=== PATIENT | female | born 1930 ===

== ENCOUNTER 2020-05-19 07:47 | Inpatient (IN) | payer MEDICARE ==
[~2020-05-19] VITALS: Ht 162.6 cm; Wt 64.1 kg
[2020-05-19] VITALS (16 sets, daily range): BP systolic 72–158; BP diastolic 41–99; BMI 19.6
--- NOTE | 2020-05-19 07:00 | NUR ---
PT RECEIVED FROM MED FLIGHT, FAMILY CALLED UNABLE TO GIVE UPDATE R/T AT BEDSIDE. VSS UPON ARRIVAL.
[2020-05-19] MEDS ORDERED: ACETAMINOPHEN325 MG PO (08:31)
[2020-05-19] MEDS ORDERED: ZOFRAN4 MG PO (08:31)
--- NOTE | 2020-05-19 09:20 | NUR ---
DR THAO AT BEDSIDE. GIVEN UDPATE. GIVEN UPDATE TO GIVE FAMILY UPDATE REGAURDING PT STATUS.
--- NOTE | 2020-05-19 10:10 | NUR ---
DR FRASER ACADEMIC COACH AT BEDSIDE GIVEN UPDATE. ALSO GIVEN UDPATE PT FAMILY REQUESTING UPDATE FROM THEIR GROUP, STATED WOULD TELL DR FRASER.
[2020-05-19 10:40] LABS: BASOPHILS 0.1 % (0-2); EOSINOPHILS 0.1 % (0-7); HEMATOCRIT 33.9 % (36.0-48.0); IMMATURE GRANULOCYTES 0.2 % (0-5); LYMPHOCYTES 7.3 % (15-50); MCH 30.8 pg (26.0-34.0); MCHC 32.4 g/dL (31.0-37.0); MEAN PLATELET VOLUME 9.2 fL (7.4-10.4); MONOCYTES 4.4 % (2-11); NEUTROPHILS 87.9 % (40-80); PLATELET COUNT 281 10x3/uL (130-400); RBC 3.57 10x6/uL (4.00-5.40); RDW 13.3 % (11.5-14.5); WBC 8.2 10x3/uL (4.8-10.8)
[2020-05-19 10:54] LABS: ALBUMIN 2.8 g/dL (3.4-5.0); ANION GAP 17.7 mmol/L (8-16); BILIRUBIN - TOTAL 0.44 mg/dL (0.2-1.3); CALCIUM 9.5 mg/dL (8.5-10.1); CARBON DIOXIDE 18.9 mmol/L (21.0-32.0); CREATININE - SERUM 1.9 mg/dL (0.6-1.3); POTASSIUM - SERUM 4.6 mmol/L (3.5-5.1); PROTEIN - SERUM 7.9 g/dL (6.4-8.2)
--- NOTE | 2020-05-19 11:07 | NUR ---
PS TRIAL 09/25
--- NOTE | 2020-05-19 11:10 | NUR ---
REASSESSMENT COMPLETE PER FLOW SHEET. VSS. PT RESTING COMFOTGABLY WILL CONTINUE TO MONITOR
--- NOTE | 2020-05-19 12:11 | NUR ---
I/T HERE, ATTEMPT TO CALL GILBERTO Guevara, WENT STRAIGHT TO VOICE MAIL. WILL TRY AGAIN IN 10 MINUTES REGAURDING ZOOM MEETING.
--- NOTE | 2020-05-19 13:26 | NUR ---
ATTEMPT TO CALL GILBERTO WITH NO ANSWER.
--- NOTE | 2020-05-19 15:00 | NUR ---
REASSESSMENT COMPLETE PER FLOW SHEET. VSS. PT RESTING COMOFRTBLY WILL CONTINUE TO MONITOR
[2020-05-19 17:12] LABS: CKMB 88.5 U/L (0.0-3.6); CREATINE KINASE 658 UL (21-215)
[2020-05-19 17:14] LABS: TROPONIN-I 43.169 ng/mL (0.000-0.060)
--- NOTE | 2020-05-19 17:27 | NUR ---
CARDIOLOGY PAGED. LAURA FONSECA APN CALLED BACK GIVEN UPDATE REGAURDING ELEVATED TROPONIN, STATED PT UNABLE TO GO TO MEDICAL PATHOLOGIST AT THIS TIME WITH ELEVATED CREATININE. EKG OBTAINED GIVEN UPDATE NSR WITH NO ST ELEVATION. ECHO READ BACK STATED PT HAD LIKELY CARDIOMYOPATHY. NEW ORDERS RECEIVED FOR DOBUTREX AND COREG. WILL CONTINUE TO MONITOR
[2020-05-19 21:46] LABS: CKMB 66.7 U/L (0.0-3.6)
[2020-05-19 21:47] LABS: CREATINE KINASE 493 UL (21-215); TROPONIN-I 32.444 ng/mL (0.000-0.060)
[2020-05-20] VITALS (20 sets, daily range): BP systolic 88–134; BP diastolic 41–65; Ht 162.6 cm; Wt 64.1 kg
[2020-05-20 03:37] LABS: BASOPHILS 0 % (0-2); EOSINOPHILS 0.1 % (0-7); HEMOGLOBIN 8.9 g/dL (12-16); IMMATURE GRANULOCYTES 0.3 % (0-5); LYMPHOCYTES 4.9 % (15-50); MCH 30.2 pg (26.0-34.0); MCHC 32.8 g/dL (31.0-37.0); MEAN PLATELET VOLUME 8.4 fL (7.4-10.4); MONOCYTES 4.7 % (2-11); RBC 2.95 10x6/uL (4.00-5.40); RDW 13.5 % (11.5-14.5); WBC 7.5 10x3/uL (4.8-10.8)
[2020-05-20 03:50] LABS: HEMATOCRIT 27.1 % (36.0-48.0); MCV 91.9 fL (80.0-100.0); PLATELET COUNT 217 10x3/uL (130-400)
[2020-05-20 04:09] LABS: CALC OSMOLALITY 281 mosm/kg (275-300); CARBON DIOXIDE 16.5 mmol/L (21.0-32.0); CHLORIDE - SERUM 106 mmol/L (98-107); CREATININE - SERUM 1.9 mg/dL (0.6-1.3); GLUCOSE 141 mg/dL (74-106); MAGNESIUM - SERUM 1.7 mg/dL (1.8-2.4); PHOSPHOROUS 4.3 mg/dL (2.5-4.9); POTASSIUM - SERUM 4.3 mmol/L (3.5-5.1); SODIUM 135 mmol/L (136-145); UREA NITROGEN 40 mg/dL (7-18); eGFR NON AFRICAN AMERICAN 26 mL/min (90-120)
[2020-05-20 04:18] LABS: CREATINE KINASE 347 UL (21-215)
--- NOTE | 2020-05-20 07:00 | NUR ---
REPORT RECEIVED ASSESSMENT COMPLETE PER FLOW SHEET. REFER FOR FINDINGS. VSS. ORAL CARE GIVEN. REPOSITION FOR COMFORT. WILL CONTINUE TO MONITOR
--- NOTE | 2020-05-20 09:00 | NUR ---
DR THAO AT BEDSIDE. GIVEN UPDATE. NEW ORDERS RECEIVED.
[2020-05-20 10:53] LABS: CHOL - HDL RATIO 2.2 ratio (2.3-4.1); LDL-HDL RATIO 0.8 ratio (1.5-3.5)
--- NOTE | 2020-05-20 11:00 | NUR ---
REASSESSMENT COMPLETE PER FLOW SHEET. CPAP TRIAL ADM PT TOLERATED FOR 30MINS. RESTING COMFORTABLY. VSS.
--- NOTE | 2020-05-20 18:00 | NUR ---
PT IS RESTING COMFORTABLY IN BED. VSS. DR THAO VISIT WITH PATIENT NO NEW ORDERS AT THIS TIME. FAMILY MEMBER CALLED AND MADE AWARE OF THE CLIENT WELLFARE AND OF THE SCHEDULED ANGIOGRAM SET UP FOR TOMORROW NO OTHER CONCERNS AT THIS TIME. BED IN LOWEST POSITION.
[2020-05-21] VITALS (24 sets, daily range): BP systolic 110–146; BP diastolic 54–71
[2020-05-21 04:54] LABS: BASOPHILS 0.2 % (0-2); EOSINOPHILS 0.5 % (0-7); HEMATOCRIT 26.4 % (36.0-48.0); HEMOGLOBIN 8.7 g/dL (12-16); IMMATURE GRANULOCYTES 0.3 % (0-5); LYMPHOCYTES 11.6 % (15-50); MCH 30.3 pg (26.0-34.0); MEAN PLATELET VOLUME 9.2 fL (7.4-10.4); MONOCYTES 4.5 % (2-11); NEUTROPHILS 82.9 % (40-80); RBC 2.87 10x6/uL (4.00-5.40); RDW 13.7 % (11.5-14.5); WBC 6.4 10x3/uL (4.8-10.8)
[2020-05-21 05:00] LABS: PLATELET COUNT 267 10x3/uL (130-400)
[2020-05-21 05:10] LABS: ANION GAP 19.9 mmol/L (8-16); CALCIUM 8.5 mg/dL (8.5-10.1); CARBON DIOXIDE 14.8 mmol/L (21.0-32.0); CREATININE - SERUM 1.9 mg/dL (0.6-1.3); MAGNESIUM - SERUM 1.7 mg/dL (1.8-2.4); PHOSPHOROUS 3.6 mg/dL (2.5-4.9); POTASSIUM - SERUM 3.7 mmol/L (3.5-5.1)
--- NOTE | 2020-05-21 07:00 | NUR ---
REASSESSMENT COMPLETE PER FLOW SHEET. VSS. PT RESTING COMFORTABLY WILL CONTINUE TO MONITOR
--- NOTE | 2020-05-21 09:00 | NUR ---
DR THAO AT BEDSIDE GIVNE UPDATE
--- NOTE | 2020-05-21 10:18 | NUR ---
Nutrition follow-up: Pt remains intubated; weaning trials today Propofol @ 10.5 ml/hr NPO Labs reviewed Wt: 113# If pt unable to extubate will need nutrition support started. RDN recommends Pulmocare @ 25 ml/hr with goal rate of 40 ml/hr RDN following.
--- NOTE | 2020-05-21 11:00 | NUR ---
REASSESSMENT COMPLETE PER FLOW SHEET. VSS. WILL CONTINUE TO MONITOR
--- NOTE | 2020-05-21 12:45 | NUR ---
PHYSICAN CONSULT CALLED INTO DR MAHONEY OFFICE
--- NOTE | 2020-05-21 13:00 | NUR ---
ORAL ENDOTRACH CARE ADM. NO NEW CHANGES
[2020-05-21 14:05] LABS: BILIRUBIN NEGATIVE (NEGATIVE); GLUCOSE NEGATIVE (NEGATIVE); KETONE NEGATIVE (NEGATIVE); NITRITE NEGATIVE (NEGATIVE); UROBILINOGEN NORMAL (NORMAL)
--- NOTE | 2020-05-21 15:00 | NUR ---
REASSESSMENT COMPLETE PER FLOW SHEET. VSS. PT RESTING COMFORTABLY WILL CONTINUE TO MONITOR
--- NOTE | 2020-05-21 22:05 | NUR ---
SPOKE WITH DR THAO VIA PHONE. GIVEN UPDATES ON PT CONDITION.
[2020-05-22] VITALS (22 sets, daily range): BP systolic 101–135; BP diastolic 41–90
[2020-05-22 04:50] LABS: BASOPHILS 0.2 % (0-2); EOSINOPHILS 0.6 % (0-7); HEMATOCRIT 25.7 % (36.0-48.0); HEMOGLOBIN 8.4 g/dL (12-16); IMMATURE GRANULOCYTES 0.3 % (0-5); LYMPHOCYTES 9.2 % (15-50); MCH 30.5 pg (26.0-34.0); MCHC 32.7 g/dL (31.0-37.0); MCV 93.5 fL (80.0-100.0); MONOCYTES 5.7 % (2-11); PLATELET COUNT 252 10x3/uL (130-400); RBC 2.75 10x6/uL (4.00-5.40); RDW 13.8 % (11.5-14.5); WBC 6.5 10x3/uL (4.8-10.8)
[2020-05-22 05:07] LABS: ANION GAP 17.5 mmol/L (8-16); CALCIUM 8.5 mg/dL (8.5-10.1); CARBON DIOXIDE 16.8 mmol/L (21.0-32.0); CREATININE - SERUM 1.6 mg/dL (0.6-1.3); MAGNESIUM - SERUM 1.6 mg/dL (1.8-2.4); PHOSPHOROUS 3.1 mg/dL (2.5-4.9); POTASSIUM - SERUM 3.3 mmol/L (3.5-5.1)
--- NOTE | 2020-05-22 08:59 | NUR ---
SPOKE WITH DAUGHTER ON TELEPHONE-REVIEWED LAB WORK AND ANSWERED QUESTIONS-CXR NOT AVAILABLE-MADE AWARE PLACED ON SLEEPING MEDICINE-PROPOFOL
--- NOTE | 2020-05-22 11:00 | NUR ---
REASSESSMENT COMPLETED PER FLOWSHEET, SEE FLOWSHEET FOR INFORMATION. NO ACUTE NEEDS OR DISTRESS NOTED AT THIS TIME. VSS. WILL CONT TO MONITOR.
--- NOTE | 2020-05-22 13:00 | NUR ---
PT RESTING IN BED WITH EYS CLOSED. NO ACUTE NEEDS OR DISTRESS NOTED AT THIS TIME. VSS. WILL CONT TO MONITOR.
--- NOTE | 2020-05-22 15:08 | NUR ---
4062-RECIEVED PER FLOW YWCLE-OUBQMXJORDHF-B JUGULAR SINGLE IV 20 G -SUCTIONED FOR LARGE AMOUNT OF THICK YELLOW MUCUS-RENAL SERVICES AT BEDSIDE 0930-DR THAO AT BEDSIDE-STATUS REPORT GIVEN-DR MAHONEY AT BEDSIDE 1130-DR FRASER AT BEDSIDE-STATUS REPORT GIVEN-DR THAO RETURNED -DIRECTED TO DECREASE SEDATION FOR NUERO CHECK AND ATTEMPT FOR CPAP TRIAL-DIPRIVAN DECREASED TO 3MCG-RT AT BEDSIDE-VENT CHANGES DONE-NOTED FACIAL AWAKE
--- NOTE | 2020-05-22 17:00 | NUR ---
CHG BEDBATH GIVEN/ WILL CONT TO MONITOR.
--- NOTE | 2020-05-22 19:00 | NUR ---
REPORT RECEIVED INITIAL ASSESSMENT COMPLETE SEE ASSESSMENT FLOWSHEET. CM READING SR WITHOUT ECTOPY ALARMS ON AND AUDIBLE. ORALLY INTUBATED SEE RESP NOTES FOR VENT SETTINGS AND CHANGES. LIGHT SEDATION PER KATHY. CPOC
--- NOTE | 2020-05-22 23:00 | NUR ---
REASSESSMENT COMPLETE NO CHANGES ORAL CARE PROVIDED REPOSITIONED
[2020-05-23] VITALS (24 sets, daily range): BP systolic 109–136; BP diastolic 35–75
--- NOTE | 2020-05-23 03:00 | NUR ---
REASSESSMENT COMPLETE NO CHANGES CPOC
--- NOTE | 2020-05-23 06:40 | NUR ---
PT HAD MODERATE SIZE BROWN SEMI FORMED STOOL PARTIAL BED BATH LINEN CHANGE
--- NOTE | 2020-05-23 07:00 | NUR ---
BEDSIDE REPORT RECEIVED. SHIFT ASSESSMENT COMPLETED PER FLOWSHEET, SEE FLOWSHEET FOR INFORMATION. IN LEFT ARM VERY THREADY RADIAL PULSE. PT IS COOL TO TOUCH, BLANKETS PLACED ON PT. RIGHT RADIAL PULSE AUDILE WITH DOPPLER. WILL CONT TO MONITOR.
[2020-05-23 08:15] LABS: BASOPHILS 0.2 % (0-2); EOSINOPHILS 2.5 % (0-7); HEMATOCRIT 26.8 % (36.0-48.0); HEMOGLOBIN 8.5 g/dL (12-16); IMMATURE GRANULOCYTES 0.4 % (0-5); LYMPHOCYTES 12.2 % (15-50); MCHC 31.7 g/dL (31.0-37.0); MCV 94.7 fL (80.0-100.0); MONOCYTES 6.5 % (2-11); NEUTROPHILS 78.2 % (40-80); PLATELET COUNT 248 10x3/uL (130-400); RBC 2.83 10x6/uL (4.00-5.40); RDW 13.8 % (11.5-14.5)
[2020-05-23 08:16] LABS: WBC 4.8 10x3/uL (4.8-10.8)
[2020-05-23 08:25] LABS: ANION GAP 17.9 mmol/L (8-16); CALCIUM 8.5 mg/dL (8.5-10.1); CREATININE - SERUM 1.3 mg/dL (0.6-1.3); PHOSPHOROUS 2.9 mg/dL (2.5-4.9); POTASSIUM - SERUM 3.9 mmol/L (3.5-5.1)
[2020-05-23 08:31] LABS: MAGNESIUM - SERUM 2.5 mg/dL (1.8-2.4)
--- NOTE | 2020-05-23 09:00 | NUR ---
ORAL AND INLINE SUCTIONED. DR.ST SIERRA AT BEDSIDE, STATED HE MAY TAKE HER FOR CATH ON Sunday BUT NOT SURE. KAROL MARIE APPLIED. WILL CONT TO MONITOR.
--- NOTE | 2020-05-23 10:00 | NUR ---
PT PLACED ON PRESSURE SUPPORT TRIALS. WILL CONT TO MONITOR.
--- NOTE | 2020-05-23 10:01 | NUR ---
ON THE PHONE WITH FAMILY, UPDATE GIVEN. WILL CONT TO MONITOR.
--- NOTE | 2020-05-23 10:40 | NUR ---
SPOKE WITH NESTOR (DAUGHTER) AND GOT CONSENT FOR A CENTRAL LINE PLACEMENT BY WITNESSED BY SOLANGE ALTMAN. WILL CONT TO MONITOR.
--- NOTE | 2020-05-23 11:00 | NUR ---
REASSESSMENT COMPLETED PER FLOWSHEET, SEE FLOWSHEET FOR INFORMATION. PT STILL ON PRESSURE SUPPORT TRIALS. NO ACUTE NEEDS OR DISTRESS NOTED AT THIS TIME. VSS. WILL CONT TO MONITOR.
--- NOTE | 2020-05-23 13:00 | NUR ---
RIGHT SUBCLAVIAN CVL IN PLACE. WILL CONT TO MONITOR.
--- NOTE | 2020-05-23 15:00 | NUR ---
REASSESSMENT COMPLETED PER FLOWSHEET, SEE FLOWSHEET FOR INFORMATION. WILL CONT TO MONITOR.
--- NOTE | 2020-05-23 16:10 | NUR ---
PER DR THAO, SET UP CVP.
--- NOTE | 2020-05-23 17:00 | NUR ---
PT RESTING IN BED WITH BIPAP IN PLACE. FAMILY UPDATED. WILL CONT TO MONITOR.
--- NOTE | 2020-05-23 19:00 | NUR ---
REPORT RECEIVED INITIAL ASSESSMENT COMPLETE. PT WAS EXTUBATED TODAY NOW ON BIPAP. CM READING SR WITHOUT ECTOPY ALARMS ON AND AUDIBLE. SEE ASSESSMENT FLOWSHEET. CPOC
--- NOTE | 2020-05-23 23:05 | NUR ---
RECEIVED PT TO ICU ROOM 2309 PLACED ON LUMBER CUTTER READING SB WITHOUT ECTOPY ALARMS ON AND AUDIBLE. PT UNRESPONSIVE ON BIPAP RESP AT BEDSIDE TO GET ABG. WILL CONTINUE TO MONITOR
[2020-05-24] VITALS (24 sets, daily range): BP systolic 107–153; BP diastolic 52–86
--- NOTE | 2020-05-24 03:40 | NUR ---
AM LAB HERE FOR AM LABS
[2020-05-24 04:35] LABS: BASOPHILS 0.2 % (0-2); EOSINOPHILS 1.8 % (0-7); HEMOGLOBIN 7.8 g/dL (12-16); IMMATURE GRANULOCYTES 0.8 % (0-5); MCH 29.8 pg (26.0-34.0); MCHC 31.2 g/dL (31.0-37.0); MCV 95.4 fL (80.0-100.0); MEAN PLATELET VOLUME 9.1 fL (7.4-10.4); MONOCYTES 10.3 % (2-11); NEUTROPHILS 71.9 % (40-80); PLATELET COUNT 258 10x3/uL (130-400); RBC 2.62 10x6/uL (4.00-5.40); RDW 13.9 % (11.5-14.5); WBC 4.9 10x3/uL (4.8-10.8)
[2020-05-24 04:54] LABS: ANION GAP 18.5 mmol/L (8-16); CALCIUM 8.6 mg/dL (8.5-10.1); CARBON DIOXIDE 17.6 mmol/L (21.0-32.0); CREATININE - SERUM 1.5 mg/dL (0.6-1.3); MAGNESIUM - SERUM 2.5 mg/dL (1.8-2.4); PHOSPHOROUS 2.8 mg/dL (2.5-4.9); POTASSIUM - SERUM 4.1 mmol/L (3.5-5.1)
--- NOTE | 2020-05-24 07:45 | NUR ---
SHIFT ASSESSMENT COMPLETE. PATIENT RESTING QUIETLY WITH NO DISTRESS NOTED. CALL LIGHT WITHIN REACH, BED IN LOW POSITION, AND WILL CONTINUE TO MONTIOR.
--- NOTE | 2020-05-24 09:27 | NUR ---
AM MEDS GIVEN PER MD ORDER. PATIENT IS NPO HELD PO MEDS AT THIS TIME. CALL LIGHT WITHIN REACH, BED IN LOW POSITION, AND WILL CONTINUE TO MONITOR. PATIENT REPOSITIONED FOR COMFORT AND SKIN CARE.
--- NOTE | 2020-05-24 09:46 | NUR ---
RESPIRATORY THERAPY IN ROOM TO PLACE PATIENT ON HIGH FLOW FOR SWALLOW STUDY. SANTOSH IN ROOM TO PERFORM SWALLOW STUDY. CALL LIGHT WITHIN REACH, BED IN LOW POSITION, AND WILL CONTINUE TO MONITOR.
--- NOTE | 2020-05-24 10:49 | NUR ---
Nutrition follow-up: Pt on BIPAP NPO Labs reviewed WT: 110# Recommend speech eval and diet started within 24 hours or nutrition support will begin RDN following.
--- NOTE | 2020-05-24 11:05 | NUR ---
DR. ORTEGA HERE IN TO SEE PATIENT. BLADDER SCAN ORDERED AND COMPLETED SHOWING 23ML OF FLUID IN BLADDER. KAY IS INTACT AND HAS VERO URINE NOTED IN TUBING. CALL LIGHT WITHIN REACH, BED IN LOW POSITION, AND WILL CONTINUE TO MONITOR.
--- NOTE | 2020-05-24 13:00 | NUR ---
REPORT REC'D AND CARE RESUMED, RESTING QUIETLY IN BED WITH BIPAP IN USE AT 30%, SAT 98%, RIGHT SC WITH DOBUTAMINE AT 2.5 MCG, NS AT 30 CC/HR, VSS, ASSESSMENT COMPLETE PER FLOWHSEET, WILL CONTINUE WITH POC
--- NOTE | 2020-05-24 15:00 | NUR ---
BIPA OF HFNC AT 6L INITITIATED BY RT, NO SIGN OF DISTRESS, VSS, NO AUCTE CHANGE FROM PREVIOUS
--- NOTE | 2020-05-24 16:00 | NUR ---
I AND O'S COMPLETED PER MAR FLOWSHEET
--- NOTE | 2020-05-24 17:00 | NUR ---
BIPAP BACK ON BY RT, SPOKE WITH SP RE: SE, ORDER PLACED
--- NOTE | 2020-05-24 19:15 | NUR ---
pt lethargic, bipap in use with fio2 @ 30%, lungs clear, right cvl intact with dobutamine gtt and plasmalyte infusing, guzman patent to bsd, vitals stable
[2020-05-25] VITALS (22 sets, daily range): BP systolic 111–130; BP diastolic 60–73
--- NOTE | 2020-05-25 | NUR ---
pt remains lethargic, opens eyes to stimuli, will cont to monitor
[2020-05-25 05:46] LABS: BASOPHILS 0.2 % (0-2); EOSINOPHILS 0.7 % (0-7); HEMATOCRIT 24.4 % (36.0-48.0); HEMOGLOBIN 7.6 g/dL (12-16); IMMATURE GRANULOCYTES 0.9 % (0-5); MCH 30.3 pg (26.0-34.0); MCHC 31.1 g/dL (31.0-37.0); MCV 97.2 fL (80.0-100.0); MEAN PLATELET VOLUME 8.7 fL (7.4-10.4); NEUTROPHILS 76.2 % (40-80); PLATELET COUNT 221 10x3/uL (130-400); RBC 2.51 10x6/uL (4.00-5.40); RDW 14.3 % (11.5-14.5); WBC 5.5 10x3/uL (4.8-10.8)
[2020-05-25 06:04] LABS: ALBUMIN 2.4 g/dL (3.4-5.0); ANION GAP 21.3 mmol/L (8-16); BILIRUBIN - DIRECT 0.15 mg/dL (0.00-0.30); BILIRUBIN - INDIRECT 0.18 mg/dL (0.00-1.00); BILIRUBIN - TOTAL 0.33 mg/dL (0.2-1.3); CALCIUM 8.8 mg/dL (8.5-10.1); CARBON DIOXIDE 14.9 mmol/L (21.0-32.0); CREATININE - SERUM 1.5 mg/dL (0.6-1.3); MAGNESIUM - SERUM 2.4 mg/dL (1.8-2.4); PHOSPHOROUS 2.9 mg/dL (2.5-4.9); POTASSIUM - SERUM 4.2 mmol/L (3.5-5.1); PROTEIN - SERUM 6.6 g/dL (6.4-8.2)
--- NOTE | 2020-05-25 07:00 | NUR ---
REPORT RECEIVED. ASSESSMENT COMPLETE PER FLOW SHEET. VSS. PT RESTING COMFORTABLY WILL CONTINUE TO MONITOR
--- NOTE | 2020-05-25 09:35 | NUR ---
REPOSITIONED FOR COMFORT NO NEW CHANGES WILL CONTNIUE TO MONITOR
[2020-05-25 10:55] LABS: CREATININE - URINE 110.3 mg/dL (30-125); PRO/CRE RATIO URINE 0.7 mg/g; PROTEIN - URINE 71.8 mg/dL (0.0-11.9)
[2020-05-25 11:49] LABS: BACTERIA MANY /hpf (NEGATIVE); BILIRUBIN NEGATIVE (NEGATIVE); EPITHELIAL CELLS 0-5 /hpf (0-5); GLUCOSE NEGATIVE (NEGATIVE); KETONE MODERATE mg/dL (NEGATIVE); NITRITE NEGATIVE (NEGATIVE); UROBILINOGEN NORMAL (NORMAL)
[2020-05-25 11:50] LABS: YEAST >1+ /hpf (NONE SEEN)
--- NOTE | 2020-05-25 19:15 | NUR ---
PT OPENS EYES TO STIMULI, BIPAP IN USE, LUNGS CLEAR, RIGHT IJ CVL INTACT WITH IVF'S INFUSING, KAY PATENT TO BSD, GENERALIZED EDEMA NOTED, NO DISTRESS NOTED, VITALS STABLE
[2020-05-26] VITALS (24 sets, daily range): BP systolic 97–124; BP diastolic 56–70
--- NOTE | 2020-05-26 07:00 | NUR ---
ASSESSMENT COMPLETE PER FLOWSHEET. VOICES NO CO AT TIME.
[2020-05-26 07:19] LABS: ANION GAP 20.7 mmol/L (8-16); CALCIUM 9.3 mg/dL (8.5-10.1); CARBON DIOXIDE 15.6 mmol/L (21.0-32.0); CREATININE - SERUM 1.6 mg/dL (0.6-1.3); MAGNESIUM - SERUM 2.7 mg/dL (1.8-2.4); POTASSIUM - SERUM 4.3 mmol/L (3.5-5.1)
[2020-05-26 07:23] LABS: BASOPHILS 0 % (0-2); EOSINOPHILS 0.1 % (0-7); HEMATOCRIT 24.3 % (36.0-48.0); LYMPHOCYTES 6.7 % (15-50); MCH 30.2 pg (26.0-34.0); MCHC 30.9 g/dL (31.0-37.0); MEAN PLATELET VOLUME 9.3 fL (7.4-10.4); MONOCYTES 8.3 % (2-11); NEUTROPHILS 82.9 % (40-80); PLATELET COUNT 245 10x3/uL (130-400); RBC 2.48 10x6/uL (4.00-5.40); RDW 14.7 % (11.5-14.5)
[2020-05-26 07:24] LABS: WBC 6.9 10x3/uL (4.8-10.8)
[2020-05-26 07:25] LABS: HEMOGLOBIN 7.5 g/dL (12-16)
--- NOTE | 2020-05-26 10:49 | NUR ---
Nutrition follow-up: Pt extubated; BIPAP now Pt failed swallow eval; ProcalAmine PPN @ 50 ml/hr Labs reviewed Wt: 124# Pt not meeting estimated energy needs with PPN @ 50 ml/hr Recommend OGT/NGT vs PEG placement and TF of Osmolite 1.0 jagdeep @ 25 ml/hr with increase to goal rate of 50 ml/hr RDN following.
--- NOTE | 2020-05-26 11:00 | NUR ---
BIPAP OFF. O2 ON AT 4 LITERS.
--- NOTE | 2020-05-26 16:00 | NUR ---
DR CAVAZOS NOTIFIED THAT DAUGHTER DID NOT GET TO PHONE IN TIME. WILL CALL DAUGHTER BACK.
--- NOTE | 2020-05-26 17:07 | NUR ---
ATTEMPT TO CALL DAUGHTER TO UPDATE. NO ANSWERE.
--- NOTE | 2020-05-26 19:15 | NUR ---
PT OPENS EYES, CONFUSED, DOES NOT VERBALIZE NEEDS, BILAT CRACKLES NOTED, BIPAP IN USE WITH O2 @ 30%, RIGHT IJ CVL INTACT WITH PROCALAMINE @ 50 CC/HR AND DOBUTAMINE @ 2.5 MCG, ELIZA PATENT TO BSD, SINUS TACH HR, WILL CONT TO MONITOR
--- NOTE | 2020-05-26 20:58 | NUR ---
CALLED PT FAMILY TO GIVE UPDATE ON PT STATUS,ANSWERED QUESTIONS
[2020-05-27] VITALS (22 sets, daily range): BP systolic 99–118; BP diastolic 44–64
--- NOTE | 2020-05-27 | NUR ---
PT RESTING QUIETLY, BIPAP REMAINS IN USE, WILL CONT TO MONITOR
[2020-05-27 04:29] LABS: BASOPHILS 0 % (0-2); EOSINOPHILS 0.1 % (0-7); HEMATOCRIT 22.5 % (36.0-48.0); IMMATURE GRANULOCYTES 1.3 % (0-5); LYMPHOCYTES 6.4 % (15-50); MCHC 31.1 g/dL (31.0-37.0); MCV 96.6 fL (80.0-100.0); MEAN PLATELET VOLUME 9.3 fL (7.4-10.4); MONOCYTES 6.3 % (2-11); NEUTROPHILS 85.9 % (40-80); PLATELET COUNT 218 10x3/uL (130-400); RBC 2.33 10x6/uL (4.00-5.40); RDW 14.8 % (11.5-14.5); WBC 6.9 10x3/uL (4.8-10.8)
[2020-05-27 04:47] LABS: ANION GAP 16.5 mmol/L (8-16); CALCIUM 9.3 mg/dL (8.5-10.1); CREATININE - SERUM 1.8 mg/dL (0.6-1.3); POTASSIUM - SERUM 4.4 mmol/L (3.5-5.1)
[2020-05-27 04:51] LABS: CARBON DIOXIDE 19.9 mmol/L (21.0-32.0)
--- NOTE | 2020-05-27 05:15 | NUR ---
SPOKE WITH PATRICIA TREJO APN, PT HGB 7.0, CROSSMATCH ORDERED FOR 2 UNITS, WILL WAIT TO LET DR ORTEGA DECIDE TO TRANSFUSE
--- NOTE | 2020-05-27 19:15 | NUR ---
REPORT RECIEVED, SHIFT ASSESSMENT COMPLETE, PT IS CONFUSED LYING IN BED, ON 2L HFNC WITH 95% O2 SAT, ALL PPP, VSS, WILL CON'T TO MONITOR
[2020-05-28] VITALS (24 sets, daily range): BP systolic 98–134; BP diastolic 33–86
[2020-05-28 04:23] LABS: BASOPHILS 0.1 % (0-2); EOSINOPHILS 0.1 % (0-7); HEMATOCRIT 25.8 % (36.0-48.0); HEMOGLOBIN 8.3 g/dL (12-16); IMMATURE GRANULOCYTES 0.9 % (0-5); MCH 30.1 pg (26.0-34.0); MCHC 32.2 g/dL (31.0-37.0); MEAN PLATELET VOLUME 9.4 fL (7.4-10.4); MONOCYTES 4.3 % (2-11); NEUTROPHILS 87.6 % (40-80); PLATELET COUNT 193 10x3/uL (130-400); RBC 2.76 10x6/uL (4.00-5.40); RDW 16.1 % (11.5-14.5); WBC 8.1 10x3/uL (4.8-10.8)
[2020-05-28 04:35] LABS: CALCIUM 8.8 mg/dL (8.5-10.1); CARBON DIOXIDE 18.6 mmol/L (21.0-32.0); CREATININE - SERUM 2.1 mg/dL (0.6-1.3); POTASSIUM - SERUM 4.6 mmol/L (3.5-5.1); VANCOMYCIN - RANDOM 11.6 ug/mL (10.0-20.0)
[2020-05-28 05:00] LABS: MCV 93.5 fL (80.0-100.0)
--- NOTE | 2020-05-28 09:50 | NUR ---
PLACED PT ON BIPAP USING ACCESSORY MUSCLE TO BREATH. SAT WAS 99%. SUCTIONED PT AND GOT ALOT OF THICK DARL BROWN SECRETIONS
--- NOTE | 2020-05-28 09:50 | NUR ---
PRBC STARTED. PT PLACED BACK ON BIPAP.
--- NOTE | 2020-05-28 10:30 | NUR ---
Nutrition follow-up: Pt now back on BIPAP ProcalAmine PPN @ 50 ml/hr Labs reviewed ProcalAmine PPN @ 50 providin kcal, 36 gm protein 49 Meq Cl, 56 Meq acetate, 29 Meq K Pt noted with third spacing Dialysis is pending Wt: 127# RDN following.
--- NOTE | 2020-05-28 13:05 | NUR ---
TALKED TO FAMILY ABOUT CODE STATUS. PT SON WANTS HIS MOTHER BACK ON VENT. INSTRUCT WILL TELL DR CAVAZOS IF IT COMES TO HER BEING REINTUBATED.
--- NOTE | 2020-05-28 21:23 | NUR ---
PTS DAUGHTER AT BEDSIDE CAME TO SEE HER MOTHER BEFORE MAKING ANY FURTHER DECISIONS REGARDING DNR OR REINTUBATION.
--- NOTE | 2020-05-28 21:30 | NUR ---
ANSWERED PTS DAUGHTERS QUESTIONS UPDATE GIVEN
[2020-05-29] VITALS (22 sets, daily range): BP systolic 102–119; BP diastolic 50–68
[2020-05-29 06:26] LABS: BASOPHILS 0.1 % (0-2); EOSINOPHILS 0.1 % (0-7); HEMATOCRIT 29.1 % (36.0-48.0); HEMOGLOBIN 9.4 g/dL (12-16); IMMATURE GRANULOCYTES 0.5 % (0-5); LYMPHOCYTES 5.3 % (15-50); MCHC 32.3 g/dL (31.0-37.0); MEAN PLATELET VOLUME 9.8 fL (7.4-10.4); MONOCYTES 2.5 % (2-11); NEUTROPHILS 91.5 % (40-80); PLATELET COUNT 159 10x3/uL (130-400); RBC 3.13 10x6/uL (4.00-5.40); RDW 17.2 % (11.5-14.5); WBC 10.1 10x3/uL (4.8-10.8)
[2020-05-29 06:42] LABS: ANION GAP 19.9 mmol/L (8-16); CALCIUM 9.4 mg/dL (8.5-10.1); CREATININE - SERUM 2.5 mg/dL (0.6-1.3); POTASSIUM - SERUM 4.9 mmol/L (3.5-5.1)
--- NOTE | 2020-05-29 07:00 | NUR ---
BEDSIDE REPORT RECEIVED. SHIFT ASSESSMENT COMPLETED PER FLOWSHEET, SEE FLOWSHEET FOR INFORMATION. WILL CONT TO MONITOR.
--- NOTE | 2020-05-29 10:52 | NUR ---
ON THE PHONE WITH YOUNGEST DAUGHTER NATALI HOWARD, DEMANDING TO SPEAK WITH CASE MANAGEMENT. CASE MANAGEMENT NOTIFIED. WILL CONT TO MONITOR.
--- NOTE | 2020-05-29 11:00 | NUR ---
REASSESSMENT COMPLETED PER FLOWSHEET, SEE FLOWSHEET FOR INFORMATION. NO ACUTE NEEDS OR DISTRESS NOTED AT THIS TIME. VSS. WILL CONT TO MONITOR.
--- NOTE | 2020-05-29 22:40 | NUR ---
RESP CULTURE OBTAINED BY RT DSAMS TAKEN TO LAB
[2020-05-30] VITALS (8 sets, daily range): BP systolic 97–109; BP diastolic 53–64
--- NOTE | 2020-05-30 03:10 | NUR ---
DR LUONG ON UNIT UPDATED ON PT STATUS NO NEW ORDERS NOTED AT THIS TIME
--- NOTE | 2020-05-30 07:00 | NUR ---
BEDSIDE REPORT RECEIVED. SHIFT ASSESSMENT COMPLETED PER FLOWSHEET, SEE FLOWSHEET FOR INFORMATION. AWAITING TO SPEAK WITH NEPHROLOGY FOR HIGH POTASSIUM AND DECREASED URINE OUTPUT. WILL CONT TO MONITOR.
[2020-05-30 07:12] LABS: BASOPHILS 0.1 % (0-2); EOSINOPHILS 0 % (0-7); HEMOGLOBIN 9.2 g/dL (12-16); IMMATURE GRANULOCYTES 0.5 % (0-5); LYMPHOCYTES 3.5 % (15-50); MCH 29.8 pg (26.0-34.0); MCHC 31.7 g/dL (31.0-37.0); MCV 93.9 fL (80.0-100.0); MEAN PLATELET VOLUME 10.2 fL (7.4-10.4); MONOCYTES 3.2 % (2-11); NEUTROPHILS 92.7 % (40-80); PLATELET COUNT 132 10x3/uL (130-400); RBC 3.09 10x6/uL (4.00-5.40); RDW 17.2 % (11.5-14.5)
[2020-05-30 07:21] LABS: ANION GAP 19.4 mmol/L (8-16); CALCIUM 9.2 mg/dL (8.5-10.1); CARBON DIOXIDE 17.4 mmol/L (21.0-32.0); CREATININE - SERUM 2.8 mg/dL (0.6-1.3); MAGNESIUM - SERUM 3.2 mg/dL (1.8-2.4); PHOSPHOROUS 3.3 mg/dL (2.5-4.9); VANCOMYCIN - RANDOM 15.5 ug/mL (10.0-20.0)
[2020-05-30 07:24] LABS: POTASSIUM - SERUM 5.8 mmol/L (3.5-5.1)
--- NOTE | 2020-05-30 08:00 | NUR ---
SPOKE WITH PAULO CHING, HE HAS MADE THE DECISION TO HAVE PT BE HOSPICE. HOSPICE CONSULT ORDERED. WILL CONT TO MONITOR.
--- NOTE | 2020-05-30 11:39 | MORECARE ---
CASE MANAGEMENT DISCHARGE SUMMARY PATIENT: SCOTT CHING UNIT: [id number] ADM DATE: 05/19/20 AGE: 89 : [birth year] SEX: F ROOM/BED: D.2302 AUTHOR: ROCAEL BROWER PHYSICIAN: REFERRING PHYSICIAN: GLORIA OROZCO MD DATE OF SERVICE: 05/30/20 Discharge Plan Patient Name: SCOTT CHING Facility: [facility]:[place] : 1930 Planned Disposition: Hospice Home Anticipated Discharge Date: Discharge Date: Expected LOS: Initial Reviewer: [email or web address] Initial Review Date: 05/19/2020 Generated: 05/30/20 12:38 pm Comments DCP- Discharge Planning Updated by [email or web address]: Marya Aguilar on 05/30/20 10:[address] Patient Name: SCOTT CHING Admission Status: Elective Accout number: [id number] Admission Date: 05-19-2020 : 1930 Admission Diagnosis:ACUTE RESPIRATORY FAILURE WITH HYPOXIA Attending: GLORIA OROZCO Current LOS: 11 Anticipated DC Date: Planned Disposition: Hospice Home Primary Insurance: MEDICARE A & B Discharge Planning Comments: FAMILY HAS MADE THE DECISION FOR HOSPICE CARE. CM CALLED [facility] AND FAXED RECORDS. HOSPICE NURSE TO COME AND EVALUATE PATIENT TODAY. CM WILL CONTINUE TO FOLLOW AND ASSIST NEEDED. All Source Intelligence Analyst: Marya Aguilar DCP- Discharge Planning Updated by [email or web address]: Marya Aguilar on 05/29/20 4:[address] CM received a call today from patient's daughter Malika. Malika states that the patient has a living will stating that she didn't want to be on life support but she doesn't have a copy of that document. Malika stated that she is one of five children. Malika stated that she and two of her siblings feel that the patient is tired and ready to go. They feel like hospice care is what the patient would want but the other two siblings don't feel the same way. Malika requested that her, her brother and the patient's sensor technician be able to come see patient a day next week. CM stated that it will have to be approved through administration but CM will send a request to administration and get back with her. Nursing is checking with facility that patient came from to see if they have a living will on file. CM will continue to follow and assist as needed with discharge planning / needs. DCP- Discharge Planning Updated by [id number]: Florina Colón on 05/27/20 4:[address] PATIENT REMAINS IN ICUAND STILL REQUIRING BIPAP. SHE IS TACHYCARDIC W/ HR 130'S. SHE HAS DECREASED URINARY OUTPUT. UP 3.2 LITERS IN 5 DAYS.CONTINUES DOBUTAMINE. IV LASIX Q12H ON HOLD TODAY. HAD IV LASIX AND ALBUMIN YESTERDAY. HGB DECREASING THEREFORE PLANNING 2 UNITS PRBCS TODAY. IVAB VANCOMYCIN AND MAXIPIME. PT EVAL ON 05/25/2020. PATIENT CONFUSED AND COULD NOT FOLLOW COMMANDS. TC TO PATIENT'S DAUGHTER,NESTOR BILLINGSLEY, TO INITIATE AN ASSESSMENT PATIENT'S CONDITION IS CRITICAL. ? MULI SYSTEM FAILURE. NO ANSWER, LEFT VOICE MAIL MESSAGE. DCPIA - Discharge Planning Initial Assessment Updated by [email or web address]: Marya Aguilar on 05/30/20 11:36 am * Is the patient Alert and Oriented? No * ADLs Partial Dependent * Partial ADLs (Assistance needed) Ambulation Bathing Dressing Eating Medication Management Toileting Transfers * List name and contact numbers for known caregivers / representatives who currently or will assist patient after discharge: NESTOR BILLINGSLEY - [phone] MALIKA LEE -[phone], JANY BILLINGSLEY - [phone] * Verbal permission to speak to the caregivers and representatives has been obtained from the patient. N/A * Additional services required to return to the preadmission environment? No * Can the patient safely return to the preadmission environment? Yes * Has this patient been hospitalized within the prior 30 days at any hospital? No External Providers External Provider[facility] Next Contact Date: Service Request Date: Service Type: Resolution: Reviewer: Comments: Patient Name: SCOTT CHING Page [phone] at 1139 All edits/amendments must be made on the electronic document DICTATION DATE: 05/30/20 1139 3D DESIGNER: JERZY 05/30/20 1139 RPT#: [id number] DC DATE: STATUS: ADM IN [facility] [address] [place] [address] END OF REPORT
--- NOTE | 2020-05-30 11:52 | NUR ---
CALLING REPORT TO MALENA ON MED SURG. PT IS TRANSFERRING TO ROOM 2225.
--- NOTE | 2020-05-30 16:06 | NUR ---
HOME PICKED UP PT
--- NOTE | 2020-05-31 09:12 | MORECARE ---
CASE MANAGEMENT DISCHARGE SUMMARY PATIENT: SCOTT CHING UNIT: [id number] ADM DATE: 05/19/20 AGE: 89 : [birth year] SEX: F ROOM/BED: D.2225 AUTHOR: ROCAEL BROWER PHYSICIAN: REFERRING PHYSICIAN: GLORIA OROZCO MD DATE OF SERVICE: 05/31/20 Discharge Plan Patient Name: SCOTT CHING Facility: [facility]:[place] : 1930 Planned Disposition: Hospice Home Anticipated Discharge Date: Discharge Date: 05/30/2020 Expected LOS: Initial Reviewer: [email or web address] Initial Review Date: 05/19/2020 Generated: 05/31/20 10:12 am Comments DCP- Discharge Planning Updated by [id number]: Marya Aguilar on 05/30/20 10:[address] Patient Name: SCOTT CHING Admission Status: Elective Accout number: [id number] Admission Date: 05-19-2020 : 1930 Admission Diagnosis:ACUTE RESPIRATORY FAILURE WITH HYPOXIA Attending: GLORIA OROZCO Current LOS: 11 Anticipated DC Date: Planned Disposition: Hospice Home Primary Insurance: MEDICARE A & B Discharge Planning Comments: FAMILY HAS MADE THE DECISION FOR HOSPICE CARE. CM CALLED [facility] AND FAXED RECORDS. HOSPICE NURSE TO COME AND EVALUATE PATIENT TODAY. CM WILL CONTINUE TO FOLLOW AND ASSIST NEEDED. Spike Machine Feeder: Marya Aguilar DCP- Discharge Planning Updated by [email or web address]: Marya Aguilar on 05/29/20 4:[address] CM received a call today from patient's daughter Malika. Malika states that the patient has a living will stating that she didn't want to be on life support but she doesn't have a copy of that document. Malika stated that she is one of five children. Malika stated that she and two of her siblings feel that the patient is tired and ready to go. They feel like hospice care is what the patient would want but the other two siblings don't feel the same way. Malika requested that her, her brother and the patient's recreational aide be able to come see patient a day next week. CM stated that it will have to be approved through administration but CM will send a request to administration and get back with her. Nursing is checking with facility that patient came from to see if they have a living will on file. CM will continue to follow and assist as needed with discharge planning / needs. DCP- Discharge Planning Updated by [email or web address]: Florina Colón on 05/27/20 4:[address] PATIENT REMAINS IN ICUAND STILL REQUIRING BIPAP. SHE IS TACHYCARDIC W/ HR 130'S. SHE HAS DECREASED URINARY OUTPUT. UP 3.2 LITERS IN 5 DAYS.CONTINUES DOBUTAMINE. IV LASIX Q12H ON HOLD TODAY. HAD IV LASIX AND ALBUMIN YESTERDAY. HGB DECREASING THEREFORE PLANNING 2 UNITS PRBCS TODAY. IVAB VANCOMYCIN AND MAXIPIME. PT EVAL ON 05/25/2020. PATIENT CONFUSED AND COULD NOT FOLLOW COMMANDS. TC TO PATIENT'S DAUGHTER,NESTOR BILLINGSLEY, TO INITIATE AN ASSESSMENT PATIENT'S CONDITION IS CRITICAL. ? MULI SYSTEM FAILURE. NO ANSWER, LEFT VOICE MAIL MESSAGE. DCPIA - Discharge Planning Initial Assessment Updated by [email or web address]: Marya Aguilar on 05/30/20 11:36 am * Is the patient Alert and Oriented? No * ADLs Partial Dependent * Partial ADLs (Assistance needed) Ambulation Bathing Dressing Eating Medication Management Toileting Transfers * List name and contact numbers for known caregivers / representatives who currently or will assist patient after discharge: NESTOR BILLINGSLEY - [phone] MALIKA LEE -[phone], JANY BILLINGSLEY - [phone] * Verbal permission to speak to the caregivers and representatives has been obtained from the patient. N/A * Additional services required to return to the preadmission environment? No * Can the patient safely return to the preadmission environment? Yes * Has this patient been hospitalized within the prior 30 days at any hospital? No Last DP export: 05/30/20 10:39 am Patient Name: SCOTT CHING Page 46430 at 0912 All edits/amendments must be made on the electronic document DICTATION DATE: 05/31/20911 LOAN EXAMINER: JERZY 05/31/20911 RPT#: [id number] DC DATE:05/30/20 STATUS: DIS IN [facility] [address] [place] [address] END OF REPORT
--- NOTE | 2020-05-31 09:20 | MORECARE ---
CASE MANAGEMENT DISCHARGE SUMMARY PATIENT: SCOTT CHING UNIT: [id number] ADM DATE: 05/19/20 AGE: 89 : [birth year] SEX: F ROOM/BED: D.2225 AUTHOR: ROCAEL BROWER PHYSICIAN: REFERRING PHYSICIAN: GLORIA OROZCO MD DATE OF SERVICE: 05/31/20 Discharge Plan Patient Name: SCOTT CHING Facility: [facility]:[place] : 1930 Planned Disposition: Hospice Home Anticipated Discharge Date: Discharge Date: 05/30/2020 Expected LOS: Initial Reviewer: [email or web address] Initial Review Date: 05/19/2020 Generated: 05/31/20 10:19 am Comments DCP- Discharge Planning Updated by [email or web address]: Marya Aguilar on 05/30/20 10:[address] Patient Name: SCOTT CHING Admission Status: Elective Accout number: [id number] Admission Date: 05-19-2020 : 1930 Admission Diagnosis:ACUTE RESPIRATORY FAILURE WITH HYPOXIA Attending: GLORIA OROZCO Current LOS: 11 Anticipated DC Date: Planned Disposition: Hospice Home Primary Insurance: MEDICARE A & B Discharge Planning Comments: FAMILY HAS MADE THE DECISION FOR HOSPICE CARE. CM CALLED [facility] AND FAXED RECORDS. HOSPICE NURSE TO COME AND EVALUATE PATIENT TODAY. CM WILL CONTINUE TO FOLLOW AND ASSIST NEEDED. Test Pilot: Marya Aguilar DCP- Discharge Planning Updated by [email or web address]: Marya Aguilar on 05/29/20 4:[address] CM received a call today from patient's daughter Malika. Malika states that the patient has a living will stating that she didn't want to be on life support but she doesn't have a copy of that document. Malika stated that she is one of five children. Malika stated that she and two of her siblings feel that the patient is tired and ready to go. They feel like hospice care is what the patient would want but the other two siblings don't feel the same way. Malika requested that her, her brother and the patient's street sweeper be able to come see patient a day next week. CM stated that it will have to be approved through administration but CM will send a request to administration and get back with her. Nursing is checking with facility that patient came from to see if they have a living will on file. CM will continue to follow and assist as needed with discharge planning / needs. DCP- Discharge Planning Updated by [email or web address]: Florina Colón on 05/27/20 4:[address] PATIENT REMAINS IN ICUAND STILL REQUIRING BIPAP. SHE IS TACHYCARDIC W/ HR 130'S. SHE HAS DECREASED URINARY OUTPUT. UP 3.2 LITERS IN 5 DAYS.CONTINUES DOBUTAMINE. IV LASIX Q12H ON HOLD TODAY. HAD IV LASIX AND ALBUMIN YESTERDAY. HGB DECREASING THEREFORE PLANNING 2 UNITS PRBCS TODAY. IVAB VANCOMYCIN AND MAXIPIME. PT EVAL ON 05/25/2020. PATIENT CONFUSED AND COULD NOT FOLLOW COMMANDS. TC TO PATIENT'S DAUGHTER,NESTOR BILLINGSLEY, TO INITIATE AN ASSESSMENT PATIENT'S CONDITION IS CRITICAL. ? MULI SYSTEM FAILURE. NO ANSWER, LEFT VOICE MAIL MESSAGE. DCPIA - Discharge Planning Initial Assessment Updated by [email or web address]: Marya Aguilar on 05/30/20 11:36 am * Is the patient Alert and Oriented? No * ADLs Partial Dependent * Partial ADLs (Assistance needed) Ambulation Bathing Dressing Eating Medication Management Toileting Transfers * List name and contact numbers for known caregivers / representatives who currently or will assist patient after discharge: NESTOR BILLINGSLEY - [phone] MALIKA LEE -[phone], JANY BILLINGSLEY - [phone] * Verbal permission to speak to the caregivers and representatives has been obtained from the patient. N/A * Additional services required to return to the preadmission environment? No * Can the patient safely return to the preadmission environment? Yes * Has this patient been hospitalized within the prior 30 days at any hospital? No Last DP export: 05/31/20 8:12 a Patient Name: SCOTT CHING Page [id number] at 0920 All edits/amendments must be made on the electronic document DICTATION DATE: 05/31/20918 RRTS: [id number] 05/31/20918 RPT#: [id number] DC DATE:05/30/20 STATUS: DIS IN [facility] [address] [place] [address] END OF REPORT
== END 2020-05-30 16:06 | DRG 207 ==
LOC: D.ICU 07:47 → D.MS 05-30 12:27
PROVIDERS: Emergency Medicine; Internal Medicine; Internal Medicine Interventional Cardiology; Internal Medicine Nephrology; Internal Medicine Pulmonary Disease; ADMIT Family Medicine; ATTEND Family Medicine
PROC: 5A1955Z Respiratory Ventilation, Greater than 96 Consecutive Hours (ICD-10-PCS; principal; 2020-05-19)
DX: J18.9 Pneumonia, unspecified organism (principal); J96.01 Acute respiratory failure with hypoxia; I21.A1 Myocardial infarction type 2; I50.23 Acute on chronic systolic (congestive) heart failure; N17.0 Acute kidney failure with tubular necrosis; I42.9 Cardiomyopathy, unspecified; E87.2 Acidosis; I13.0 Hypertensive heart and chronic kidney disease with heart failure and stage 1 through stage 4 chronic kidney disease, or unspecified chronic kidney disease; N17.9 Acute kidney failure, unspecified; D64.9 Anemia, unspecified; N18.9 Chronic kidney disease, unspecified; R53.81 Other malaise